=== PATIENT | female | born 1960 ===

== ENCOUNTER 2016-06-10 22:27 | Emergency (ER) | payer SELFPAY ==
[2016-06-10 22:35] VITALS: BP 156/104; PULSE 98; RESP 18; TEMP 97.8; O2SAT 98
[2016-06-10] MEDS ORDERED: Hydrogen Peroxide 3% Soln (480ml) TP ONE (22:44)
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
== END 2016-06-11 01:00 ==
LOC: EDBD → H.ER 22:27
DX: F10.10 Alcohol abuse, uncomplicated (principal); E11.9 Type 2 diabetes mellitus without complications; I10 Essential (primary) hypertension; F17.200 Nicotine dependence, unspecified, uncomplicated

== ENCOUNTER 2016-06-11 05:33 | Emergency (ER) | payer SELFPAY ==
[2016-06-11 05:49] VITALS: BP 152/103; PULSE 81; RESP 18; TEMP 98.7; O2SAT 100
--- NOTE | 2016-06-11 06:01 | ED PDOC ---
HPI: General Adult Time Seen by Provider: 06/11/16 05:51 Chief Complaint (Nursing): Medical Clearance Chief Complaint (Provider): medical clearance History Per: Patient History/Exam Limitations: no limitations Onset/Duration Of Symptoms: Mins Have you had recent travel within the past 21 days to any of the following countries: [place], [place], [place] or [place]?: No Current Symptoms Are (Timing): Gone Now Recently: Seen In ED Additional Complaint(s): 55yo female with PMHx including epilepsy presents to the ED, in [place] [employer] custody, for medical clearance. Patient was just seen in this ED 2 hours prior for same and cleared at that time. At that time, patient had no medical complaints. Police report patient subsequently complained of dizziness and SOB prompting them to bring patient back to ED. Upon provider questioning, patient only verbalizing she has hx of epilepsy and denies active complaints. Past Medical History Reviewed: Historical Data, Nursing Documentation, Vital Signs Vital Signs: Last Vital Signs Temp 98.7 F 06/11/16 05:44 Pulse 81 06/11/16 05:44 Resp 18 06/11/16 05:44 BP 152/103 H 06/11/16 05:44 Pulse Ox 100 06/11/16 06:05 - Medical History PMH: Diabetes, HTN, Seizures Denies: Hepatitis, HIV, Sexually Transmitted Disease Other PMH: epilepsy - Surgical History Surgical History: No Surg Hx - Family History Family History: States: No Known Family Hx - Social History Current smoker - smoking cessation education provided: Yes Alcohol: Other (daily) Drugs: Denies - Allergies Allergies/Adverse Reactions: Allergies Allergy/AdvReac Type Severity Reaction Status Date / Time No Known Allergies Allergy Verified 05/17/14 09:37 Review of Systems ROS Statement: Except As Marked, All Systems Reviewed And Found Negative Physical Exam - Reviewed Nursing Documentation Reviewed: Yes Vital Signs Reviewed: Yes - Physical Exam Appears: Positive for: Well, No Acute Distress Head Exam: Positive for: ATRAUMATIC, NORMAL INSPECTION, NORMOCEPHALIC Skin: Positive for: Normal Color, Warm, Dry Eye Exam: Positive for: Normal appearance ENT: Positive for: Normal ENT Inspection Neck: Positive for: Normal, Painless ROM, Supple Cardiovascular/Chest: Positive for: Regular Rate, Rhythm. Negative for: Murmur , Tachycardia Respiratory: Positive for: Normal Breath Sounds. Negative for: Wheezing, Respiratory Distress Gastrointestinal/Abdominal: Positive for: Normal Exam, Bowel Sounds, Soft. Negative for: Tenderness Back: Positive for: Normal Inspection Extremity: Positive for: Normal ROM. Negative for: Deformity, Swelling Neurologic/Psych: Positive for: Alert, Oriented. Negative for: Motor/Sensory Deficits - ECG O2 Sat by Pulse Oximetry: 100 Pulse Ox Interpretation: Normal (RA) Medical Decision Making Medical Decision Makin: Impression: 55yo female brought for medical clearance Plan: Patient stable for d/c in police custody. Dx: medical clearance stable Patient released in custody of [facility] Scribe Attestation: Documented by Ora Rouse acting as a scribe for Jack Cornell MD. Provider Scribe Attestation: All medical record entries made by the Scribe were at my direction and personally dictated by me. I have reviewed the chart and agree that the record accurately reflects my personal performance of the history, physical exam, medical decision making, and the department course for this patient. I have also personally directed, reviewed, and agree with the discharge instructions and disposition. Disposition - Clinical Impression Clinical Impression: Medical clearance for incarceration - Patient ED Disposition Is Patient to be Admitted: No - Disposition Disposition: Routine/Home Disposition Time: 06:05 Condition: STABLE Additional Instructions: Patient is medically stable for incarceration Instructions: Alcohol Use Disorder (ED)
--- NOTE | 2016-06-11 18:23 | CARD ---
APPROVED REPORT EKG Measurement Heart [id number] NM [id number] <Conclusion> Normal sinus rhythm Normal ECG
== END 2016-06-11 06:05 ==
LOC: EDBD → H.ER 05:33
DX: Z00.8 Encounter for other general examination (principal); E11.9 Type 2 diabetes mellitus without complications; G40.909 Epilepsy, unspecified, not intractable, without status epilepticus; I10 Essential (primary) hypertension; R06.02 Shortness of breath; R42 Dizziness and giddiness